=== PATIENT | male | born 1990 | race Caucasian/White ===

== ENCOUNTER 2020-07-13 17:45 | Emergency (ER) | payer OTHER ==
[~2020-07-13] VITALS: Ht 172.7 cm; Wt 83.0 kg
--- NOTE | 2020-07-13 18:53 | NUR ---
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 NO SIGNS OR SYMPTOMS OF ACUTE DISTRES NOTED RESPIRATIONS EVEN AND UNLABORED
[2020-07-13 19:00] LABS: BASOPHILS % (AUTO) 1 % (0-1); EOSINOPHILS % (AUTO) 1 % (1-7); LYMPHOCYTES % (AUTO) 24 % (22-44); MD NO; MEAN CORPUSCULAR HEMOGLOBIN 29.5 pg (27.5-34.5); MEAN PLATELET VOLUME 8.2 fL (7.4-10.4); MONOCYTES % (AUTO) 6 % (2-9); NEUTROPHILS % (AUTO) 69 % (42-75); PLATELET COUNT 259 x10^3/uL (130-400); RED BLOOD COUNT 5.42 x10^6/uL (4.38-5.82)
[2020-07-13 19:03] LABS: ALANINE AMINOTRANSFERASE 28 U/L (12-78); ALBUMIN 3.5 g/dL (3.4-5.0); ANION GAP 6 mmol/L (5-15); CALCIUM 8.3 mg/dL (8.5-10.1); CHLORIDE 110 mmol/L (98-107); CREATININE 0.77 mg/dL (0.7-1.3)
[2020-07-13 19:05] LABS: ALKALINE PHOSPHATASE 57 U/L (45-117); BILIRUBIN,TOTAL 0.3 mg/dL (0.2-1.0); TOTAL PROTEIN 6.7 g/dL (6.4-8.2)
--- NOTE | 2020-07-13 19:14 | NUR ---
PT NOW MORE ALERT AND RESPONSIVE, COMPLAINING OF CHAPA RATED 10/10. PT ALERT AND ORIENTED TO SELF ONLY, STATES LOCATION IS AB[place] AND CANT PLACE A TIME. PT STATES THE LAST THING HE REMEMBERS IS BEING IN A CELL. PT AWARE OF NEED FOR UA, URINAL AT BEDSIDE FOR SAMPLE COLLECTION. SEIZURE PADS ON BED BILATERALLY.
--- NOTE | 2020-07-13 20:10 | NUR ---
TASK RN NOTE: DISCUSSION WITH DR MONTALVO REGARDING PT'S PAIN. AWAITING FURTHER ORDERS.
[2020-07-13] MEDS ORDERED: KETOROLAC 30 MG/1 ML ONE (20:12)
[2020-07-13] MEDS ORDERED: KETOROLAC 30 MG/1 ML IM ONE (20:30)
[2020-07-13] MEDS ORDERED: KETOROLAC 30 MG/1 ML IVPush ONE (20:30)
--- NOTE | 2020-07-13 20:37 | NUR ---
Paola bergman in ED - 07/13/20 at 2040 by ALEXSANDER pt dressed and ready for dc, no vs measurement pt eager to leave.
--- NOTE | 2020-07-13 21:49 | NUR ---
PT NOW ALERT AND RESPONSIVE, ORIENTED TO SELF ONLY, COMPLAINING OF 8/10 HEADACHE. PT ABLE TO VOID INTO URINAL, SAMPLE COLLECTED AND SENT TO LAB. PT ABLE TO HAVE ICE CHIPS WITHOUT PAIN NAUSEA OR VOMITING. PROVIDED SOME ORAL FLUIDS TO SIP ON. 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
[2020-07-13] MEDS ORDERED: GABAPENTIN 300 MG CAPSULE PO ONE (22:30)
[2020-07-13] MEDS ORDERED: LEVETIRACETAM 1,000 MG in SODIUM CHLORIDE 0.9% 100 ML IV ONE (22:30)
[2020-07-13] MEDS ORDERED: GABAPENTIN 300 MG CAPSULE ONE (22:37)
[2020-07-13 22:50] LABS: METHADONE SCREEN, URINE Negative (Negative)
[2020-07-13 22:53] LABS: AMPHETAMINE SCREEN, URINE Negative (Negative); BARBITURATE SCREEN, URINE Negative (Negative); BENZODIAZEPINE SCREEN, URINE Negative (Negative); CANNABINOID SCREEN, URINE Negative (Negative); COCAINE SCREEN, URINE Negative (Negative); OPIATE SCREEN, URINE Negative (Negative)
[2020-07-13 23:38] VITALS: BP 128/81
== END 2020-07-13 20:38 | disposition home or self-care (01) ==
LOC: ED 18:15
DX: G83.84 Todd's paralysis (postepileptic) (principal); R56.9 Unspecified convulsions; F17.210 Nicotine dependence, cigarettes, uncomplicated
CPT/HCPCS: 36415; 70450; 80053; 80307; 80320; 82962; 83605; 85025; 93005; 96374; 96375; 99285; 99406; J1885; J1953; G0480